=== PATIENT | female | born 1960 | race Caucasian/White ===

== ENCOUNTER 2021-05-20 09:18 | Outpatient (CLI) | payer BC | END 2021-05-20 09:19 | disposition home or self-care (01) | LOC: BICCT 09:18 | PROVIDERS: ATTEND Thoracic Surgery (Cardiothoracic Vascular Surgery) | DX: I70.213 Atherosclerosis of native arteries of extremities with intermittent claudication, bilateral legs (principal); K76.0 Fatty (change of) liver, not elsewhere classified; N26.1 Atrophy of kidney (terminal); I70.0 Atherosclerosis of aorta; I70.8 Atherosclerosis of other arteries | CPT/HCPCS: 75635; 82565 ==

== ENCOUNTER 2021-05-25 11:21 | Outpatient (CLI) | payer BC ==
[2021-05-25 12:46] LABS: Hemoglobin 11.9 g/dL (12.0-15.5); Mean Corpuscular HGB CONC 33.6 g/dL (32.0-36.0); Mean Corpuscular Hemoglobin 31.8 pg (27.0-33.0); Mean Corpuscular Volume 94.7 fl (81.6-98.3); Mean Platelet Volume 9.8 fl (7.4-10.4); Platelet Count 270 10x3/uL (150-450); RBC Distribution Width 12.6 % (11.5-14.5); Red Blood Cell (RBC) Count 3.74 10x6/uL (3.90-5.03); White Blood Cell (WBC) Count 6.2 10x3/uL (3.5-10.5)
[2021-05-25 12:57] LABS: Anion Gap 13 mmol/L (10-20); BUN (Urea Nitrogen) 23 mg/dL (9.8-20.1); Calc. Creatinine Clearance 0 mL/min (70-130); Calcium 10.2 mg/dL (7.8-10.44); Carbon Dioxide 27 mmol/L (23-31); Chloride 101 mmol/L (98-107); Glucose 88 mg/dL (80-115); Potassium 4.3 mmol/L (3.5-5.1); Sodium 137 mmol/L (136-145)
[2021-05-25 22:27] LABS: SARS-CoV-2 PCR by NAA Not Detected (NotDetected)
== END 2021-05-25 11:22 | disposition home or self-care (01) ==
LOC: LABBT 11:21
PROVIDERS: ATTEND Thoracic Surgery (Cardiothoracic Vascular Surgery)
DX: Z01.818 Encounter for other preprocedural examination (principal); Z20.822 Contact with and (suspected) exposure to COVID-19
CPT/HCPCS: 80048; 85027; 93005; 93010; U0003; U0005

== ENCOUNTER 2021-05-27 05:42 | Day surgery (SDC) | payer BC ==
[2021-05-26 10:50] VITALS: BMI 30.1
[2021-05-27] MEDS ORDERED: Iopamidol 370 76% 50 ML VIAL FS ONE (10:54)
[2021-05-27] MEDS ORDERED: Midazolam HCl 2 mg/2 ml Vial ONE (11:13)
[2021-05-27] MEDS ORDERED: Fentanyl 100 MCG/2 ML VIAL ONE (11:13)
[2021-05-27] MEDS ORDERED: Protamine Sulfate 50 MG/5 ML VIAL ONE (12:26)
[2021-05-27] MEDS ORDERED: Heparin 10,000 UNITS/ 10 ML VIAL ONE (12:36)
== END 2021-05-27 17:20 | disposition home or self-care (01) ==
LOC: CCL 05:42
PROVIDERS: ATTEND Thoracic Surgery (Cardiothoracic Vascular Surgery)
PROC: 047H3D1 Dilation of Right External Iliac Artery with Intraluminal Device, using Drug-Coated Balloon, Percutaneous Approach (ICD-10-PCS; principal; 2021-05-27)
PROC: 047C3EZ Dilation of Right Common Iliac Artery with Two Intraluminal Devices, Percutaneous Approach (ICD-10-PCS; principal; 2021-05-27)
DX: I70.213 Atherosclerosis of native arteries of extremities with intermittent claudication, bilateral legs (principal); I10 Essential (primary) hypertension; E03.9 Hypothyroidism, unspecified; E78.5 Hyperlipidemia, unspecified; Z87.891 Personal history of nicotine dependence; Z79.02 Long term (current) use of antithrombotics/antiplatelets; Z79.82 Long term (current) use of aspirin; Z79.899 Other long term (current) drug therapy; Z90.2 Acquired absence of lung [part of]; Z90.5 Acquired absence of kidney
CPT/HCPCS: 36140; 36200; 37221; 37223; 75710; 75716; 75736; 85347; C1725; C1876; C2617; J1644; J2250; J2720; J3010; Q9967

== ENCOUNTER 2021-11-03 09:12 | Outpatient (CLI) | payer BC ==
[2021-11-03 11:43] LABS: Hemoglobin 12.8 g/dL (12.0-15.5); Mean Corpuscular HGB CONC 35.1 g/dL (32.0-36.0); Mean Corpuscular Hemoglobin 32.2 pg (27.0-33.0); Mean Corpuscular Volume 91.7 fl (81.6-98.3); Mean Platelet Volume 9.7 fl (7.4-10.4); Platelet Count 283 10x3/uL (150-450); RBC Distribution Width 12.3 % (11.5-14.5); Red Blood Cell (RBC) Count 3.98 10x6/uL (3.90-5.03); White Blood Cell (WBC) Count 5.1 10x3/uL (3.5-10.5)
[2021-11-03 11:55] LABS: Anion Gap 15 mmol/L (10-20); BUN (Urea Nitrogen) 23 mg/dL (9.8-20.1); Calc. Creatinine Clearance 0 mL/min (70-130); Calcium 9.6 mg/dL (7.8-10.44); Carbon Dioxide 24 mmol/L (23-31); Chloride 103 mmol/L (98-107); Glucose 87 mg/dL (80-115); Potassium 4.2 mmol/L (3.5-5.1); Sodium 138 mmol/L (136-145)
== END 2021-11-03 09:13 | disposition home or self-care (01) ==
LOC: LABBT 09:12
PROVIDERS: ATTEND Thoracic Surgery (Cardiothoracic Vascular Surgery)
DX: Z01.812 Encounter for preprocedural laboratory examination (principal); I73.9 Peripheral vascular disease, unspecified; Z20.822 Contact with and (suspected) exposure to COVID-19
CPT/HCPCS: 80048; 85027; U0003; U0005

== ENCOUNTER 2021-11-05 05:45 | Day surgery (SDC) | payer BC ==
[2021-11-04 09:08] VITALS: BMI 29.2
[2021-11-05] MEDS ORDERED: Heparin 10,000 UNITS/ 10 ML VIAL ONE (07:39)
[2021-11-05] MEDS ORDERED: Protamine Sulfate 50 MG/5 ML VIAL ONE (08:06)
[2021-11-05] MEDS ORDERED: Iopamidol 370 76% 50 ML VIAL FS ONE (08:48)
== END 2021-11-05 15:06 | disposition home or self-care (01) ==
LOC: SDC 05:45
PROVIDERS: ATTEND Thoracic Surgery (Cardiothoracic Vascular Surgery)
PROC: 047C3DZ Dilation of Right Common Iliac Artery with Intraluminal Device, Percutaneous Approach (ICD-10-PCS; principal; 2021-11-05)
PROC: 047H3DZ Dilation of Right External Iliac Artery with Intraluminal Device, Percutaneous Approach (ICD-10-PCS; principal; 2021-11-05)
DX: I70.213 Atherosclerosis of native arteries of extremities with intermittent claudication, bilateral legs (principal); I10 Essential (primary) hypertension; E03.9 Hypothyroidism, unspecified; E78.5 Hyperlipidemia, unspecified; Z87.891 Personal history of nicotine dependence; Z79.02 Long term (current) use of antithrombotics/antiplatelets; Z79.82 Long term (current) use of aspirin; Z79.890 Hormone replacement therapy; Z79.899 Other long term (current) drug therapy
CPT/HCPCS: 37221; 75710; 85347; J1644; J2720; Q9967

== ENCOUNTER 2022-08-23 12:15 | Outpatient (CLI) | payer BC | END 2022-08-23 12:16 | disposition home or self-care (01) | LOC: BICCT 12:15 | PROVIDERS: ATTEND Internal Medicine Hematology & Oncology | DX: Z12.2 Encounter for screening for malignant neoplasm of respiratory organs (principal); C34.81 Malignant neoplasm of overlapping sites of right bronchus and lung; F17.210 Nicotine dependence, cigarettes, uncomplicated; Z98.890 Other specified postprocedural states | CPT/HCPCS: 71271 ==

== ENCOUNTER 2022-09-27 09:25 | Outpatient (CLI) | payer BC | END 2022-09-27 09:26 | disposition home or self-care (01) | LOC: BICMAMMO 09:25 | PROVIDERS: ATTEND Nurse Practitioner Family | DX: Z12.31 Encounter for screening mammogram for malignant neoplasm of breast (principal) | CPT/HCPCS: 77063; 77067 ==

== ENCOUNTER 2025-05-08 11:29 | Outpatient (CLI) | payer MEDICARE | END 2025-05-08 11:30 | disposition home or self-care (01) | LOC: RAD 11:29 | PROVIDERS: ATTEND Internal Medicine Critical Care Medicine | DX: R06.00 Dyspnea, unspecified (principal) | CPT/HCPCS: 71046 ==